=== PATIENT | male | born 1985 | race African-American/Black ===

== ENCOUNTER 2016-12-25 07:26 | Emergency (ER) | payer SELFPAY ==
[~2016-12-25] VITALS: Ht 190.5 cm; Wt 86.0 kg
[2016-12-25] MEDS ORDERED: KETOROLAC 60MG/2ML VIAL IM ONE (10:15)
[2016-12-25 10:50] VITALS: BP 132/65
== END 2016-12-25 13:00 | disposition home or self-care (01) ==
LOC: ER 10:24
DX: M54.5 Low back pain (principal); F12.10 Cannabis abuse, uncomplicated
CPT/HCPCS: 72110; 96372; 99284; J1885